=== PATIENT | female | born 1955 | race Caucasian/White ===

== ENCOUNTER 2024-12-25 22:09 | Emergency (ER) | payer BC, SELFPAY ==
[2024-12-25 22:43] VITALS: BP 107/61
[2024-12-25 23:18] LABS: Hematocrit 35.7 % (37.0-47.0); Hemoglobin 12.1 g/dL (12.0-16.0); Mean Corp Hgb Conc. 33.9 g/dL (33.0-37.0); Mean Corpuscular Volume 92.0 fL (81.0-99.0); Nucleated Red Blood Cells % 0 %; Platelet Count 211 10^3/uL (130-400); Red Cell Dist. Width 12.1 % (11.5-14.5)
[2024-12-25 23:35] LABS: ALT (SGPT) 25 U/L (0-35); AST (SGOT) 29 U/L (14-36); Albumin 4.5 g/dl (3.5-5.0); Alkaline Phosphatase 85 U/L (38-126); Blood Urea Nitrogen 33 mg/dl (7-17); Calcium 9.8 mg/dl (8.4-10.2); Carbon Dioxide 28 mmol/L (22-30); Chloride 104 mmol/L (98-107); Glucose 136 mg/dl (70-99); Lipase 229 U/L (23-300); Potassium 5.1 mmol/L (3.5-5.1); Sodium 137 mmol/L (135-145); Total Protein 6.9 g/dl (6.3-8.2); eGFR 54.73
[2024-12-26 01:45] VITALS: BP 119/68
[2024-12-26 01:46] VITALS: BMI 23.1
[2024-12-26 02:00] VITALS: BP 128/75
[2024-12-26] MEDS: NSS 1000 IV (02:25)
--- NOTE | 2024-12-26 02:48 | ED.GENMED ---
History of Present Illness
General
Chief Complaint: Abdominal Pain
Source: patient
Exam Limitations: none
Time Seen by Provider: 12/26/24 01:48
Nursing documentation reviewed up to this point in time: agreed with
History of Present Illness
History of Present Illness:
Patient is a 69-year-old female who presents to the emergency department with acute onset left flank pain. Patient states she was watching her son in a play when she had acute onset pain in her left lower abdomen. Pain was constant for a few hours
however has dissipated slightly by my assessment. She reports a few episodes of vomiting. She denies any diarrhea or constipation. No fevers or chills.
Of note�patient states she has had a few weeks of dark-colored/potentially bloody urine. She denies any associated dysuria. No urinary frequency or hesitancy.
Patient has no known history of kidney stones.
She is currently traveling from [place].
Review of Systems
Review of Systems
Allergies reviewed?: Yes
All Other Systems: ROS reviewed and negative except as documented in HPI and ROS
Phy Exam
Physical Exam
Physical Exam:
Vitals: Patient's vital signs are stable. Afebrile
General: Patient is well appearing, no acute distress. Nontoxic appearing
Skin: Warm and dry, no rashes or lesions
Head: Normocephalic, atraumatic
Eyes: Sclera nonicteric.
Throat: Protecting airway
Neck: Normal ROM, no cervical spine tenderness, no meningismus
Cardiac: Regular rate and rhythm, no murmurs.
Pulm: Normal respiratory effort, no wheezes, rales, rhonchi heard on exam
Abdomen: Abdomen soft. No reproducible tenderness. No CVA tenderness.
Extremities: No evidence of cyanosis or edema. 2+ palpable DP pulses bilaterally
Neuro: AAOx3. Grossly intact.
Psychiatric: Normal affect.
Course
Orders/Labs/Results
Orders:
Orders
12/25/24 22:50
Electrocardiogram (*1) Urgent
Reason for Study: Chest Pain
EKG- Treatment ONCE
12/25/24 23:03
Complete Blood Count/With Diff Urgent
Comprehensive Metabolic Panel Urgent
Creatine Phosphokinase Urgent
Lipase Urgent
12/26/24 02:10
Abdomen/Pelvis wo Contrast CT [CT Abd/pelvis Wo Iv Cont] Urgent
Comment:
Reason For Exam: Acute onset left flank pain, +n/v
0.9% Sodium Chloride 1000 ml [Nss] 1,000 ml IV BOLUS
12/26/24 02:11
Add On- LAB Urgent
Tests Added?: CPK
12/26/24 02:21
Urinalysis Reflex To Culture Urgent
Date Specimen was Collected: 12/26/24
Time Specimen was Collected: 02:19
Urine Microscopic Reflex Cult Urgent
Urine Culture Urgent
[place] Source: U
Specimen Description:
Date Specimen was Collected: 12/26/24
Time Specimen was Collected: 02:19
12/26/24 03:46
Cefdinir [Omnicef] 300 mg PO NOW STA
Oxycodone [Roxicodone] 5 mg PO NOW STA
Tamsulosin [Flomax] 0.4 mg PO NOW STA
12/26/24 03:48
Add On - Microbiology Urgent
Tests Added?: urine culture
Abnormal Lab Results
12/25/24 12/26/24
23:03 02:21
RBC 3.88 L 10^6/uL
(4.20-5.40)
Hct 35.7 L %
(37.0-47.0)
MCH 31.2 H pg
(27.0-31.0)
Absolute Neuts (auto) 8.4 H 10^3/uL
(1.4-6.5)
Absolute Lymphs (auto) 0.7 L 10^3/uL
(1.2-3.4)
Absolute Monos (auto) 0.8 H 10^3/uL
(0.1-0.6)
Neutrophils % 84.2 H %
(42.2-75.2)
Lymphocytes % 6.9 L %
(20.5-51.1)
BUN 33 H mg/dl
(7-17)
Creatinine 1.1 H mg/dL
(0.6-1.0)
Glucose 136 H mg/dl
(70-99)
Urine Ketones 2+ A
(Negative)
Ur Occult Blood Reflex 4+ A
(Negative)
Leukocyte Esterase Rfl 1+ A
(Negative)
Urine RBC >100 A /HPF
(0-2)
Urine WBC (Reflex) 11-15 A /HPF
(0-5)
Urine Bacteria (Reflex) Moderate A
(Negative)
Urine Albumin (Reflex) 2+ A
(Neg - Trace)
12/25/24 23:03
12/25/24 23:03
Vital Signs
Initial and Last Documented VS:
Initial Vital Signs
Temp Pulse Resp BP Pulse Ox
98.2 F 69 16 107/61 97
12/25/24 22:43 12/25/24 22:43 12/25/24 22:43 12/25/24 22:43 12/25/24 22:43
Last Documented Vital Signs
Temp Pulse Resp BP Pulse Ox
98.2 F 94 18 125/64 97
12/25/24 22:43 12/26/24 01:47 12/26/24 01:47 12/26/24 04:30 12/26/24 04:32
MDM/Problems Addressed
Differential Diagnosis Includes:
Not limited to: Renal colic, pyelonephritis, muscle strain/spasm, appendicitis, diverticulitis,
MDM/Problems Addressed:
69-year-old female with acute onset left flank pain associated with nausea/vomiting. Symptoms improved prior to my assessment. No associated fever, dysuria, diarrhea. She does endorse a few weeks of dark colored/bloody urine. Patient hemodynamically
stable on arrival. On exam � patient well appearing, in no apparent distress. She�s nontoxic. Abdomen is soft and nontender. No CVA tenderness or rash.
Differential broad. However � given history of recent hematuria, as well as acute nature of pain � clinically suspicious for possible kidney stone.
Labs were sent prior to my evaluation without clinically significant abnormalities. Very mild renal insufficiency with elevation of creatinine to 1.1. Will add on CT scan abdomen/pelvis without IV contrast. Will check UA. Will give IV fluids.
Patient declined analgesia at this time.
Update: CT scan shows large obstructing kidney stone at left UVJ measuring 7X5X7 millimeters with mild hydronephrosis. UA reviewed with attending physician � no clear evidence of infection however does have moderate bacteria, 11�15 WBC. Patient is
nontoxic appearing. Her pain has remained very well controlled without any analgesia in the emergency department.
Offered admission to patient and (who is an internal medicine physician) for pain management/urology consult for potential intervention given size of stone. However � patient and her are currently visiting and live in [place],
planning for travel back tomorrow. They would prefer discharge home with pain control/outpatient urology follow up back in [place]. Given patient is afebrile and nontoxic appearing with well managed pain � feel this is an appropriate option.
Advised repeat lab work to ensure creatinine normalizes. Pain management discussed with patient. Given somewhat equivocal UA will start pt on course of abx to cover possible UTI. Very strict return precautions discussed with patient and her
who are comfortable with plan.
Chronic conditions affecting care:
N/A
Acute Exacerbation and/or Progression of Chronic Illness:
N/A
*Radiology
Radiology exam reviewed: preliminary read by ED provider (Moderate hydronephrosis on left side with obstructing distal ureteral calculus)
*Pulse Oximetry
SaO2: 95
Oxygen Mode of Delivery: Room air
Patient hypoxic: no
*EKG
Interpreted by ED Provider?: NA
*Business Lawyer Interpretation
Rate: Business Lawyer- N/A
*Critical Care Note
Total Time (30-74mins, 75-104mins- exclusive of procedures): Not Applicable
ED Attending Note
-
Portions of this chart may have been created with voice recognition software.� Occasional wrong word or��sound alike� substitutions may have occurred due to the inherent limitations of voice recognition software.
Discharge Plan
Departure
Patient Disposition: Home (Routine Discharge)
Date of Disposition: 12/26/24
Time of Disposition: 03:47
Patient with high blood pressure during this ER visit?: Yes
Discharge Problem:
Calculus of distal left ureter
Instructions: Kidney Stones (DC), BLOOD PRESSURE
Prescriptions:
New
cefdinir 300 mg capsule
300 mg PO BID 7 Days Qty: 14 0RF
tamsulosin [Flomax] 0.4 mg capsule
0.4 mg PO DAILY Qty: 14 0RF
ondansetron 4 mg tablet,disintegrating
4 mg PO Q8H PRN (Reason: nausea and vomiting) Qty: 7 0RF
oxycodone 5 mg tablet
5 mg PO Q8H PRN (Reason: Pain) Qty: 7 0RF
Referrals:
PRIVATE,PHYSICIAN [Family Provider, Internal Medicine]
Activity Restrictions/Additional Instructions:
RETURN TO THE EMERGENCY DEPARTMENT WITH ANY INTRACTABLE PAIN, INTRACTABLE NAUSEA/VOMITING, FEVER, SIGNIFICANT WEAKNESS, INABILITY TO URINATE, ANY SIGNS OF INFECTION, OR ANY OTHER CONCERNS
- As discussed�your CT scan showed a 7X5X 7 mm stone at your left ureterovesicular junction. You should take 600 mg ibuprofen every 6-8 hours as needed for pain. You can alternate with Tylenol, as well. For severe pain�you can take oxycodone.
This may cause drowsiness and you should not take prior to driving. Please take Flomax daily or until you passed stone. You can take Zofran as needed for nausea.
- A prescription for antibiotic has been sent to your pharmacy to cover for possible infection. Please take this twice a day for the next week.
- As discussed your creatinine was mildly elevated today in the emergency department. Please follow-up with your primary care provider and have repeat lab work to ensure this returns to normal. It is important to stay well-hydrated.
- Follow-up with a urologist as soon as you arrive back in [place].
Monitor your symptoms very closely and return to the emergency department with any acute worsening/new symptoms or any signs of infection
Interventions
Interventions:
*Risk Screen - Suicide Last Done: 12/25/24 22:43
*General Assessment Last Done: 12/26/24 01:49
*Neglect/Abuse Screening Last Done: 12/25/24 22:43
*ED- Fall Risk Assessment Last Done: 12/25/24 22:43
*ED COVID-19 Vaccine History Last Done: 12/26/24 01:49
*Nursing Disposition Last Done: 12/26/24 04:56
NU-Fjasef-Nvuyjqdczp Assessment Last Done: 12/26/24 01:50
Discharge Date and Time
Discharge Date/Time: 12/26/24 04:58
Print Language: NAURUAN
[2024-12-26 03:07] LABS: Urine Character Clear (Clear)
[2024-12-26 03:32] LABS: Urine Red Blood Cell >100 /HPF (0-2)
[2024-12-26 04:30] VITALS: BP 125/64
[2024-12-26] MEDS: OMNICEF 300 MG PO (04:31)
[2024-12-26] MEDS: FLOMAX 0.4 MG PO (04:32)
[2024-12-26] MEDS: ROXICODONE 5 MG PO (04:32)
== END 2024-12-26 04:58 | disposition home or self-care (01) ==
LOC: EMR 22:09
PROVIDERS: Emergency Medicine; Physician Assistant; EMERGENCY PHYSICIAN Student in an Organized Health Care Education/Training Program
DX: N13.2 Hydronephrosis with renal and ureteral calculous obstruction (principal); N28.9 Disorder of kidney and ureter, unspecified
CPT/HCPCS: 99284; 96360; 74176; 80053; 81003; 81015; 82550; 83690; 85025; 87086; 93005